=== PATIENT | female | born 1990 | race American Indian/Alaskan Native ===

== ENCOUNTER 2017-10-28 00:56 | Inpatient (IN) | payer MEDICAID ==
[2017-10-28] MEDS ORDERED: Carboprost Tromethamine 250 MCG/1 ML Amp IM PRN (01:56)
[2017-10-28] MEDS ORDERED: Tranexamic Acid 1,000 MG in Sodium Chloride 0.9% 100 ML IV PRN (01:56)
[2017-10-28] MEDS ORDERED: Lidocaine 1% 30 ML SDV INJECT PRN (01:56)
[2017-10-28] MEDS ORDERED: Misoprostol 400 MCG (4 X 100 MCG TAB) RECTAL PRN (01:56)
[2017-10-28] MEDS ORDERED: Acetaminophen 325 MG Tab PO PRN (01:56)
[2017-10-28] MEDS ORDERED: Methylergonovine 0.2 MG/1 ML Amp IM PRN (01:56)
[2017-10-28] MEDS ORDERED: Lactated Ringers 500 ML IV ONE (01:56)
[2017-10-28] MEDS ORDERED: Sodium Chloride 0.9% 10 ML Syringe FLUSH PRN (01:56)
[2017-10-28] MEDS ORDERED: Ondansetron 4 MG/2 ML SDV IV PRN (01:56)
[2017-10-28] MEDS ORDERED: Oxytocin/Normal Saline 30 UNIT/500 ML BAG IV SCH (02:00)
[2017-10-28] MEDS ORDERED: Penicillin G Potassium 5 MILLUNITS in Sodium Chloride 0.9% 100 ML IV ONE (02:00)
[2017-10-28] MEDS ORDERED: Lactated Ringers 1,000 ML IV SCH (02:00)
--- NOTE | 2017-10-28 02:07 | PCM.LDHP ---
L&D History of Present Illness - General Date of Service: 10/28/17 Admit Problem/Dx: Patient Status Order with Admit Dx/Problem 10/28/17 01:56 Patient Status [ADT] Routine Admission Diagnosis/Problem Admission Diagnosis/Problem care Source of Information: Patient History Limitations: Reports: No Limitations - History of Present Illness Introduction:: 27-year-old at unknown gestational age presented to L&D via ambulance with contractions that started sometime yesterday morning. They started increasing in strength around 1730 yesterday. She is currently feeling them every 2-3 minutes and does have to breathe through them. Baby has been active. She has had some blood tinged discharge but no active bleeding or leaking of fluid. Baby has been active. She thinks her LMP was in January, making this a suspected term . She states she had no care with this but has had care with her other pregnancies. She denies any history of HSV, gonorrhea, chlamydia or HCV. Patient's records were reviewed and her obstetric history is as follows: #1--02/09/08 Male 40w3d 8#9 Vaginal #2--04/27/09 Male 40w0d 7#2 Vaginal #3--03/24/10 Male 37w0d 6#5 Vaginal (Macrosomia #4--04/12/13 Male 40w0d 9#2 Vaginal (Induced for GDM) #5--05/31/15 Female 39w3d 8#13 Vaginal (Induced for GDM) - Related Data Allergies/Adverse Reactions: Allergies Allergy/AdvReac Type Severity Reaction Status Date / Time No Known Allergies Allergy Verified 05/31/15 00:22 Home Medications: Home Meds . 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: , Other (See Below) Other OB/BYN History: hx abnormal pap; Chlamydia 09/2011 (treated) Musculoskeletal History: Reports: None Neurological History: Reports: None Psychiatric History: Reports: None Endocrine/Metabolic History: Reports: Diabetes, Gestational Hematologic History: Reports: Anemia Immunologic History: Reports: None Oncologic (Cancer) History: Reports: None Dermatologic History: Reports: None - Infectious Disease History Infectious Disease History: Reports: Chicken Pox - Past Surgical History Female Surgical History: Reports: LEEP Social & Family History - Family History Family Medical History: Noncontributory Endocrine/Metabolic: Reports: Diabetes, type II (Maternal aunt; Paternal aunt) - Tobacco Use Smoking Status *Q: Never Smoker - Sexual History Sexual History: Reports: Sexually Active, Vaginal [place] - Living Situation & Occupation Living situation: Reports: with Significant Other H&P Review of Systems - Review of Systems: Review Of Systems: See Below General: Reports: No Symptoms HEENT: Reports: No Symptoms Pulmonary: Reports: No Symptoms Cardiovascular: Reports: No Symptoms Gastrointestinal: Reports: Abdominal Pain Genitourinary: Reports: No Symptoms Musculoskeletal: Reports: Back Pain Skin: Reports: No Symptoms Psychiatric: Reports: No Symptoms Neurological: Reports: No Symptoms Hematologic/Lymphatic: Reports: No Symptoms Immunologic: Reports: No Symptoms L&D Exam - Exam Exam: See Below - OB Specific Contraction Duration (sec): 60 Contraction Frequency (min): 3 Contraction Intensity: Moderate to Strong Movement: Active Heart Tones: Present Heart Tones per Min: 135 Heart Rate (FHR) Variability: Moderate (6-25 bmp) Presentation: Vertex - La Score La Score Cervix Position: Midposition La Score Consistency: Soft La Score Effacement: >80% La Score Dilation: > 5 cm La Score Infant's Station: -1 ,0 La Score Total: 11 - Exam General: Alert, Oriented HEENT: Conjunctiva Clear, Mucosa Moist & [place] Lungs: Clear to Auscultation, Normal Respiratory Effort Cardiovascular: Regular Rate, Regular Rhythm. No: Systolic Murmur, Diastolic Murmur Genitourinary: Normal external exam, Other (Gentle speculum exam revealed significan discharge and cervix; No bleeding noted) Extremities: No Pedal Edema Skin: Warm, Dry, Other (Significant scarring on arms and legs (patient reports this is from eczema)) - Problem List (1) Multiparity SNOMED Code(s): 18378678 ICD Code: Z64.1 - PROBLEMS RELATED TO MULTIPARITY Status: Acute Current Visit: Yes (2) No care in current in third trimester SNOMED Code(s): 206824691, 448340109 ICD Code: O09.33 - SUPRVSN OF PREG W INSUFFICIENT ANTENAT CARE, THIRD TRIMESTER Status: Acute Current Visit: Yes (3) Active labor SNOMED Code(s): 87520589 ICD Code: VZG2201 - Status: Acute Current Visit: Yes (4) History of gestational diabetes in prior , currently in third trimester SNOMED Code(s): 435810992 ICD Code: O09.293 - SUPRVSN OF PREG W POOR REPRODCTV OR OBSTET HX, THIRD TRI ; Z86.32 - PERSONAL HISTORY OF GESTATIONAL DIABETES Status: Acute Current Visit: Yes Problem List Initiated/Reviewed/Updated: Yes Orders Last 24hrs: Active Orders 24 hr Category Date Time Status Patient Status [ADT] Routine ADT 10/28/17 01:56 Ordered Blood Glucose Check, Bedside [RC] ONETIME Care 10/28/17 01:14 Active Communication Order [RC] ASDIRECTED Care 10/28/17 01:56 Ordered Heart Rate [RC] CONTINUOUS Care 10/28/17 01:14 Active Heart Tones [RC] PER UNIT ROUTINE Care 10/28/17 01:56 Ordered Non Stress Test [RC] PER UNIT ROUTINE Care 10/28/17 01:56 Ordered Notify Provider Vital Signs OB [RC] ASDIRECTED Care 10/28/17 01:56 Ordered Notify Provider [RC] PRN Care 10/28/17 01:56 Ordered OB Check [OM.PC] Click To Edit Care 10/28/17 01:14 Ordered POC Labs [RC] ASDIRECTED Care 10/28/17 01:14 Active Pump Management, Intrathecal [RC] ASDIRECTED Care 10/28/17 01:56 Ordered Up ad Malathi [RC] ASDIRECTED Care 10/28/17 01:56 Ordered Vital Signs [RC] PER UNIT ROUTINE Care 10/28/17 01:56 Ordered Consult to Case Management [CONS] Routine Cons 10/28/17 01:56 Ordered OB Ltd 1 or More Fetus [US] Routine Exams 10/28/17 01:14 Ordered CBC W/O DIFF,HEMOGRAM [HEME] Routine Lab 10/28/17 01:14 Ordered CHLAMYDIA AND GONORRHEA BY TMA Routine Lab 10/28/17 01:14 Ordered CULTURE GROUP B STREP [RM] Routine Lab 10/28/17 01:14 Ordered DRUG SCREEN URINE BIORAD [URCHEM] Routine Lab 10/28/17 01:00 Ordered HEP C VIRUS AB [REF] Urgent Lab 10/28/17 01:14 Ordered HIV 1,2 AB/AG COMBO SCREEN [REF] Routine Lab 10/28/17 01:14 Ordered MISC TEST Routine Lab 10/28/17 01:14 Ordered RPR [REF] Routine Lab 10/28/17 01:14 Ordered RUBELLA ANTIBODY, IGG [REF] Routine Lab 10/28/17 01:14 Ordered TYPE AND SCREEN [BBK] Routine Lab 10/28/17 01:14 Ordered UA W/MICROSCOPIC [URIN] Routine Lab 10/28/17 01:00 Ordered WET PREP [MYC] Routine Lab 10/28/17 01:14 Ordered Acetaminophen [Tylenol] Med 10/28/17 01:56 Ordered 650 mg PO Q4H PRN Carboprost Tromethamine [Hemabate DS] Med 10/28/17 01:56 Ordered 250 mcg IM ASDIRECTED PRN Lactated Ringers @ 125 MLS/HR(1000ml) Med 10/28/17 02:00 Ordered Lactated Ringers [Ringers, Lactated] 1,000 ml IV ASDIRECTED Lactated Ringers [Ringers, Lactated] 500 ml Med 10/28/17 01:56 Ordered IV .BOLUS Lidocaine 1% [Xylocaine-MPF 1%] Med 10/28/17 01:56 Ordered 10 ml INJECT ASDIRECTED PRN Methylergonovine [Methergine] Med 10/28/17 01:56 Ordered 0.2 mg IM ASDIRECTED PRN Ondansetron [Zofran] Med 10/28/17 01:56 Ordered 4 mg IV Q4H PRN Oxytocin 30 Units in NS @ 2 MUNITS/MIN(500ml) Med 10/28/17 02:00 Ordered Oxytocin/Normal Saline [Pitocin in NS 30 UNIT/500 ML] 30 unit in 500 ml IV TITRATE Penicillin G Potassium [Pfizerpen] 3 millunits Med 10/28/17 02:00 Ordered Sodium Chloride 0.9% [Normal Saline] 100 ml IV Q4HR Penicillin G Potassium [Pfizerpen] 5 millunits Med 10/28/17 01:56 Ordered Sodium Chloride 0.9% [Normal Saline] 100 ml IV ONETIME Sodium Chloride 0.9% [Saline Flush] Med 10/28/17 01:56 Ordered 10 ml FLUSH ASDIRECTED PRN Tranexamic Acid [Cyklokapron] 1,000 mg Med 10/28/17 01:56 Ordered Sodium Chloride 0.9% [Normal Saline] 100 ml IV ONETIME miSOPROStol [Cytotec] Med 10/28/17 01:56 Ordered 800 mcg RECTAL ASDIRECTED PRN Saline Lock Insert [OM.PC] Routine Oth 10/28/17 01:56 Ordered Resuscitation Status Routine Resus Stat 10/28/17 01:56 Ordered Medication Orders Acetaminophen (Tylenol) 650 mg PO Q4H PRN PRN Reason: Pain (Mild 1-3) and fever Carboprost Tromethamine (Hemabate Ds) 250 mcg IM ASDIRECTED PRN PRN Reason: HEMORRHAGE Lactated Ringer's (Ringers, Lactated) 500 mls @ 999 mls/hr IV .BOLUS ONE Stop: 10/28/17 02:26 Lactated Ringer's (Ringers, Lactated) 1,000 mls @ 125 mls/hr IV ASDIRECTED [place] Oxytocin/Sodium Chloride (Pitocin In Ns 30 Unit/500 Ml) 30 unit in 500 mls @ 2 mls/hr IV TITRATE [place]; Protocol Penicillin G Potassium 5 (millunits/ Sodium Chloride) 100 mls @ 200 mls/hr IV ONETIME ONE Stop: 10/28/17 02:25 Penicillin G Potassium 3 (millunits/ Sodium Chloride) 100 mls @ 200 mls/hr IV Q4HR [place] Tranexamic Acid 1,000 mg/ (Sodium Chloride) 110 mls @ 660 mls/hr IV ONETIME PRN PRN Reason: Bleeding Lidocaine HCl (Xylocaine-Mpf 1%) 10 ml INJECT ASDIRECTED PRN PRN Reason: Perineal Repair Methylergonovine Maleate (Methergine) 0.2 mg IM ASDIRECTED PRN PRN Reason: Hemorrhage Misoprostol (Cytotec) 800 mcg RECTAL ASDIRECTED PRN PRN Reason: Hemorrhage Ondansetron HCl (Zofran) 4 mg IV Q4H PRN PRN Reason: Nausea/Vomiting Sodium Chloride (Saline Flush) 10 ml FLUSH ASDIRECTED PRN PRN Reason: Keep Vein Open Assessment/Plan Comment:: 27-year-old at suspected term with no care. 1. Admit to L&D. Ultrasound is not available for assessment of gestational age ; however, patient is not a candidate for transfer given her advanced cervical dilation. Gentle speculum exam did not reveal any signs of placenta. Gentle cervical exam was performed and was normal for a patient with 8-9 cm dilation. Membranes are intact. 2. Obtain full IOB labs, including GBS, STD screening and UDS. 3. Will given PCN for GBS unknown status. 4. Expectant management. Anticipate . Milka Escalera MD
[2017-10-28] MEDS ORDERED: Zolpidem 5 MG Tab PO PRN (02:45)
[2017-10-28] MEDS ORDERED: Oxytocin 10 Units/1 ML SDV IM PRN (02:45)
[2017-10-28] MEDS ORDERED: Simethicone 80 MG Tab.Chew PO PRN (02:45)
[2017-10-28] MEDS ORDERED: Benzocaine/Menthol 20%-0.5% Spray 56 GM Canister TOP PRN (02:45)
[2017-10-28] MEDS ORDERED: Ketorolac 30 MG/ML SDV IVPUSH PRN (02:47)
--- NOTE | 2017-10-28 02:47 | PCM.DEL ---
L & D Note - General Info Date of Service: 10/29/17 - Delivery Note Labor: Spontaneous Delivery Outcome: Livebirth Delivery Method: Spontaneous Vaginal Delivery-Single Presentation: Vertex Nuchal Cord: None Anesthesia Type: None Amniotic Fluid Description: Clear Episiotomy Type: None Laceration: None Placenta: Intact, Spontaneous Cord: 3 Vessels Estimated Blood Loss: 250 [place]: Bulb Syringe, Stimulated, Warmed, Warmer Used Score 1 min: 8 Score 5 min: 9 Delivery Comments (Free Text/Narrative):: 27-year-old, now , at unknown gestational age presented to L&D via ambulance for contractions that started approximately 18 hours prior to arrival to the hospital and had been painful for about 6 hours prior to her arrival. She did not have any care. Because of this and lack of ultrasound availability, a gentle speculum exam was done. This revealed a significantly dilated cervix. A cervical exam was then performed and patient was found to be at 9 cm. Patient received a dose of PCN for her GBS unknown status but she was inadequately treated as she proceeded to complete dilation a short time later. Her membranes were ruptured. She delivered a viable female infant a short time later after pushing one time. Infant's Apgars were 8 and 9 at 1 and 5 minutes respectively. Placental delivered spontaneously a few minutes later. Umbilical cord was collected for drug screening. Perineum was noted to be intact, and bleeding was appropriately. - General Info Date of Service: 10/28/17 - Patient Data Vitals - Most Recent: Last Vital Signs Temp 37.1 C 10/28/17 02:18 Pulse 79 10/28/17 02:18 Resp 20 10/28/17 02:18 BP 127/77 10/28/17 02:18 Pulse Ox Lab Results Last 24 Hours: Laboratory Results - last 24 hr 10/28/17 10/28/17 10/28/17 Range/Units 01:00 01:00 02:00 WBC 11.7 H (5.0-10.0) 10^3/uL RBC 4.17 L (4.2-5.4) 10^6/uL Hgb 10.7 L (12.0-16.0) g/dL Hct 34.1 L (37.0-47.0) % MCV 81.8 D (80-100) fL MCH 25.7 L (27.0-34.0) pg MCHC 31.4 L (33.0-35.0) g/dL Plt Count 211 (150-450) 10^3/uL Urine Color Yellow (YELLOW) Urine Appearance Cloudy (CLEAR) Urine pH 7.5 (5.0-9.0) Ur Specific [place] 1.020 (1.005-1.030) Urine Protein Trace H (NEGATIVE) Urine Glucose (UA) Negative (NEGATIVE) Urine Ketones 40 H (NEGATIVE) Urine Occult Blood Negative (NEGATIVE) Urine Nitrite Negative (NEGATIVE) Urine Bilirubin Negative (NEGATIVE) Urine Urobilinogen 0.2 (0.2-1.0) mg/dL Ur Leukocyte Esterase Trace H (NEGATIVE) Urine RBC 5-10 H /HPF Urine WBC 10-20 H (0-5/HPF) /HPF Ur Epithelial Cells Moderate H /HPF Amorphous Sediment Few (0/HPF) /HPF Urine Bacteria Few (0-FEW/HPF) /HPF Urine Mucus Moderate H /LPF Urine Opiates Screen Negative (NEGATIVE) Ur Oxycodone Screen Negative (NEGATIVE) Urine Methadone Screen Negative (NEGATIVE) Ur Barbiturates Screen Negative (NEGATIVE) U Tricyclic Antidepress Negative (NEGATIVE) Ur Phencyclidine Scrn Negative (NEGATIVE) Ur Amphetamine Screen Negative (NEGATIVE) U Methamphetamines Scrn Negative (NEGATIVE) Urine MDMA Screen Negative (NEGATIVE) U Benzodiazepines Scrn Negative (NEGATIVE) Urine Cocaine Screen Negative (NEGATIVE) U Marijuana (THC) Screen Negative (NEGATIVE) Med Orders - Current: Current Medications Acetaminophen (Tylenol) 650 mg PO Q4H PRN PRN Reason: Pain (Mild 1-3) and fever Benzocaine/Menthol (Dermoplast Pain Relief [place]) 0 gm TOP Q4H PRN PRN Reason: Perineal comfort measures Carboprost Tromethamine (Hemabate Ds) 250 mcg IM ASDIRECTED PRN PRN Reason: HEMORRHAGE Docusate Sodium (Colace) 100 mg PO BID PRN PRN Reason: Constipation Oxytocin/Sodium Chloride (Pitocin In Ns 30 Unit/500 Ml) 30 unit in 500 mls @ 2 mls/hr IV TITRATE [place]; Protocol Tranexamic Acid 1,000 mg/ (Sodium Chloride) 110 mls @ 660 mls/hr IV ONETIME PRN PRN Reason: Bleeding Ibuprofen (Motrin) 800 mg PO Q8H PRN PRN Reason: Mild Pain or Fever Methylergonovine Maleate (Methergine) 0.2 mg IM ASDIRECTED PRN PRN Reason: Hemorrhage Misoprostol (Cytotec) 800 mcg RECTAL ASDIRECTED PRN PRN Reason: Hemorrhage Ondansetron HCl (Zofran) 4 mg IV Q4H PRN PRN Reason: Nausea/Vomiting Oxytocin (Pitocin) 10 unit IM ONETIME PRN PRN Reason: Bleeding Prenat Multivit/Fur Polisher/Iron/Folic Ac ( Plus Iron) 1 each PO DAILY [place] Simethicone (Simethicone) 80 mg PO Q4H PRN PRN Reason: Gas Sodium Chloride (Saline Flush) 10 ml FLUSH ASDIRECTED PRN PRN Reason: Keep Vein Open Zolpidem Tartrate (Ambien) 5 mg PO BEDTIME PRN PRN Reason: Insomnia Discontinued Medications Lactated Ringer's (Ringers, Lactated) 500 mls @ 999 mls/hr IV .BOLUS ONE Stop: 10/28/17 02:26 Lactated Ringer's (Ringers, Lactated) 1,000 mls @ 125 mls/hr IV ASDIRECTED [place] Penicillin G Potassium 5 (millunits/ Sodium Chloride) 100 mls @ 200 mls/hr IV ONETIME ONE Stop: 10/28/17 02:29 Penicillin G Potassium 3 (millunits/ Sodium Chloride) 100 mls @ 200 mls/hr IV Q4HR [place] Lidocaine HCl (Xylocaine-Mpf 1%) 10 ml INJECT ASDIRECTED PRN PRN Reason: Perineal Repair - Problem List & Annotations (1) Multiparity SNOMED Code(s): 09087472 Code(s): Z64.1 - PROBLEMS RELATED TO MULTIPARITY Status: Acute Current Visit: Yes (2) No care in current in third trimester SNOMED Code(s): 209021344, 619682884 Code(s): O09.33 - SUPRVSN OF PREG W INSUFFICIENT ANTENAT CARE, THIRD TRIMESTER Status: Acute Current Visit: Yes (3) Active labor SNOMED Code(s): 35604418 Code(s): PSG4650 - Status: Acute Current Visit: Yes (4) History of gestational diabetes in prior , currently in third trimester SNOMED Code(s): 530873360 Code(s): O09.293 - SUPRVSN OF PREG W POOR REPRODCTV OR OBSTET HX, THIRD TRI; Z86.32 - PERSONAL HISTORY OF GESTATIONAL DIABETES Status: Acute Current Visit: Yes - Problem List Review Problem List Initiated/Reviewed/Updated: Yes - My Orders Last 24 Hours: My Active Orders 10/28/17 01:00 CHLAMYDIA AND GONORRHEA BY TMA Routine CULTURE GROUP B STREP [RM] Routine MISC TEST Routine 10/28/17 01:14 OB Check [OM.PC] Click To Edit OB Ltd 1 or More Fetus [US] Routine 10/28/17 01:56 Patient Status [ADT] Routine Non Stress Test [RC] PER UNIT ROUTINE Notify Provider Vital Signs OB [RC] ASDIRECTED Up ad Malathi [RC] ASDIRECTED Consult to Case Management [CONS] Routine Acetaminophen [Tylenol] 650 mg PO Q4H PRN Carboprost Tromethamine [Hemabate DS] 250 mcg IM ASDIRECTED PRN Methylergonovine [Methergine] 0.2 mg IM ASDIRECTED PRN Ondansetron [Zofran] 4 mg IV Q4H PRN Sodium Chloride 0.9% [Saline Flush] 10 ml FLUSH ASDIRECTED PRN Tranexamic Acid [Cyklokapron] 1,000 mg Sodium Chloride 0.9% [Normal Saline] 100 ml IV ONETIME miSOPROStol [Cytotec] 800 mcg RECTAL ASDIRECTED PRN Saline Lock Insert [OM.PC] Routine Resuscitation Status Routine 10/28/17 02:00 HEP C VIRUS AB [REF] Urgent HIV 1,2 AB/AG COMBO SCREEN [REF] Routine RPR [REF] Routine RUBELLA ANTIBODY, IGG [REF] Routine TYPE AND SCREEN [BBK] Routine Oxytocin/Normal Saline [Pitocin in NS 30 UNIT/500 ML] 30 unit in 500 ml IV TITRATE 10/28/17 02:19 WET PREP [MYC] Routine 10/28/17 02:45 Vital Signs [RC] PFP Benzocaine/Menthol [Dermoplast Pain Relief [place]] See Dose Instructions TOP Q4H PRN Docusate Sodium [Colace] 100 mg PO BID PRN Ibuprofen [Motrin] 800 mg PO Q8H PRN Oxytocin [Pitocin] 10 unit IM ONETIME PRN Simethicone 80 mg PO Q4H PRN Zolpidem [Ambien] 5 mg PO BEDTIME PRN Assess Lochia [WOMSER] Per Unit Routine Assess Uterine Involution [WOMSER] Per Unit Routine Breast Pump [WOMSER] Per Unit Routine Ice Therapy [OM.PC] Per Unit Routine Perineal Care [OM.PC] Per Unit Routine Saline Lock Insert [OM.PC] Urgent Sitz Bath [OM.PC] Per Unit Routine 10/28/17 02:47 Ketorolac [Toradol] 30 mg IVPUSH Q6H PRN 10/28/17 09:00 Vit with Ca/FA/Iron [ Plus Iron] 1 each PO DAILY 10/28/17 Breakfast Regular Diet [DIET] - Assessment Assessment:: 27-year-old, now , status post at unknown gestational age. - Plan Plan:: 1. Initiate routine orders 2. Plans to bottle feed 3. Follow-up in IOB labs 4. Anticipate discharge on 10/30/17 Milka Escalera MD
[2017-10-28] MEDS ORDERED: Penicillin G Potassium 3 MILLUNITS in Sodium Chloride 0.9% 100 ML IV SCH (06:00)
[2017-10-28] MEDS: Ibuprofen 800 MG Tab PO PRN ×2 (09:23→19:54)
[2017-10-28] MEDS: Prenatal Multivitamin with Calcium/Folic Acid/Iron Tab PO SCH (09:24)
[2017-10-28] MEDS: Docusate Sodium 100 MG Cap PO PRN ×2 (09:26→19:54)
[2017-10-29] MEDS: Docusate Sodium 100 MG Cap PO PRN ×2 (08:34→20:16)
[2017-10-29] MEDS: Prenatal Multivitamin with Calcium/Folic Acid/Iron Tab PO SCH (08:34)
[2017-10-29] MEDS: Ibuprofen 800 MG Tab PO PRN ×2 (08:34→20:16)
--- NOTE | 2017-10-29 16:41 | PCM.PNPP ---
- General Info Date of Service: 10/29/17 Subjective Update: 27-year-old, now , PPD#1 status post . Patient is doing well. She has some mild back pain but no other pain. Bleeding is decreasing. She is voiding without difficulty. Has not had a bowel movement yet. No fever or chills. Ambulating without difficulty and tolerating a general diet. Functional Status: Reports: Pain Controlled, Tolerating Diet, Ambulating, Urinating. Denies: New Symptoms - Review of Systems General: Reports: No Symptoms HEENT: Reports: No Symptoms Pulmonary: Reports: No Symptoms Cardiovascular: Reports: No Symptoms Gastrointestinal: Reports: No Symptoms Genitourinary: Reports: No Symptoms Musculoskeletal: Reports: Back Pain - Patient Data Vital Signs - Most Recent: Last Vital Signs Temp 36.8 C 10/29/17 08:00 Pulse 141 H 10/29/17 08:00 Resp 18 10/29/17 08:00 BP 123/84 10/29/17 08:00 Pulse Ox 98 10/29/17 08:00 Weight - Most Recent: 111.13 kg Lab Results - Last 24 Hours: Laboratory Results - last 24 hr 10/28/17 10/28/17 10/28/17 Range/Units 02:00 02:00 02:00 RPR Non-reac (Non-Reac) HIV (1&2) Ag & Ab Refer See scanned report Rubella Immune Status Immune Rubella IgG Antibody Positive Med Orders - Current: Current Medications Acetaminophen (Tylenol) 650 mg PO Q4H PRN PRN Reason: Pain (Mild 1-3) and fever Benzocaine/Menthol (Dermoplast Pain Relief [place]) 0 gm TOP Q4H PRN PRN Reason: Perineal comfort measures Carboprost Tromethamine (Hemabate Ds) 250 mcg IM ASDIRECTED PRN PRN Reason: HEMORRHAGE Docusate Sodium (Colace) 100 mg PO BID PRN PRN Reason: Constipation Last Admin: 10/29/17 08:34 Dose: 100 mg Oxytocin/Sodium Chloride (Pitocin In Ns 30 Unit/500 Ml) 30 unit in 500 mls @ 2 mls/hr IV TITRATE [place]; Protocol Last Titration: 10/28/17 05:30 Dose: 0 mls/hr Tranexamic Acid 1,000 mg/ (Sodium Chloride) 110 mls @ 660 mls/hr IV ONETIME PRN PRN Reason: Bleeding Ibuprofen (Motrin) 800 mg PO Q8H PRN PRN Reason: Mild Pain or Fever Last Admin: 10/29/17 08:34 Dose: 800 mg Ketorolac Tromethamine (Toradol) 30 mg IVPUSH Q6H PRN PRN Reason: Pain Stop: 11/02/17 02:47 Last Admin: 10/28/17 03:14 Dose: 30 mg Methylergonovine Maleate (Methergine) 0.2 mg IM ASDIRECTED PRN PRN Reason: Hemorrhage Misoprostol (Cytotec) 800 mcg RECTAL ASDIRECTED PRN PRN Reason: Hemorrhage Ondansetron HCl (Zofran) 4 mg IV Q4H PRN PRN Reason: Nausea/Vomiting Oxytocin (Pitocin) 10 unit IM ONETIME PRN PRN Reason: Bleeding Prenat Multivit/Office Automation Clerk/Iron/Folic Ac ( Plus Iron) 1 each PO DAILY [place] Last Admin: 10/29/17 08:34 Dose: 1 each Simethicone (Simethicone) 80 mg PO Q4H PRN PRN Reason: Gas Sodium Chloride (Saline Flush) 10 ml FLUSH ASDIRECTED PRN PRN Reason: Keep Vein Open Zolpidem Tartrate (Ambien) 5 mg PO BEDTIME PRN PRN Reason: Insomnia Discontinued Medications Lactated Ringer's (Ringers, Lactated) 500 mls @ 999 mls/hr IV .BOLUS ONE Stop: 10/28/17 02:26 Last Admin: 10/28/17 03:54 Dose: Not Given Lactated Ringer's (Ringers, Lactated) 1,000 mls @ 125 mls/hr IV ASDIRECTED [facility] Last Admin: 10/28/17 01:23 Dose: 125 mls/hr Penicillin G Potassium 5 (millunits/ Sodium Chloride) 100 mls @ 200 mls/hr IV ONETIME ONE Stop: 10/28/17 02:29 Last Admin: 10/28/17 01:43 Dose: 200 mls/hr Penicillin G Potassium 3 (millunits/ Sodium Chloride) 100 mls @ 200 mls/hr IV Q4HR [facility] Lidocaine HCl (Xylocaine-Mpf 1%) 10 ml INJECT ASDIRECTED PRN PRN Reason: Perineal Repair - Infant Interaction Disposition, : in Room with Family Infant Interaction: Holding Infant Infant Feeding: Bottle Fed Support Person: Sister - Recovery Exam Fundal Tone: Firm Fundal Level: 2 Fingerbreadths Below Umbilicus Fundal Placement: Midline Lochia Amount: Small Lochia Color: Brownish Perineum Description: Intact, Minimal Bruising/Swelling Episiotomy/Laceration: None Bladder Status: Voiding - Exam General: Alert, Oriented Lungs: Clear to Auscultation, Normal Respiratory Effort Cardiovascular: Regular Rate, Regular Rhythm, No Murmurs GI/Abdominal Exam: Soft, Non-Tender Skin: Warm, Dry, Intact - Problem List & Annotations (1) Multiparity SNOMED Code(s): 30289739 Code(s): Z64.1 - PROBLEMS RELATED TO MULTIPARITY Status: Acute Current Visit: Yes (2) No care in current in third trimester SNOMED Code(s): 695884743, 674995434 Code(s): O09.33 - SUPRVSN OF PREG W INSUFFICIENT ANTENAT CARE, THIRD TRIMESTER Status: Acute Current Visit: Yes (3) Active labor SNOMED Code(s): 74842089 Code(s): LOX1135 - Status: Acute Current Visit: Yes (4) History of gestational diabetes in prior , currently in third trimester SNOMED Code(s): 191907186 Code(s): O09.293 - SUPRVSN OF PREG W POOR REPRODCTV OR OBSTET HX, THIRD TRI; Z86.32 - PERSONAL HISTORY OF GESTATIONAL DIABETES Status: Acute Current Visit: Yes (5) (normal spontaneous vaginal delivery) SNOMED Code(s): 03022547 Code(s): O80 - ENCOUNTER FOR FULL-TERM UNCOMPLICATED DELIVERY Status: Acute Current Visit: Yes - Problem List Review Problem List Initiated/Reviewed/Updated: Yes - Assessment Assessment:: 27-year-old, now , PPD#1 status post at unknown gestational age. - Plan Plan:: 1. Continue routine orders 2. Bottle feeding 3. Anticipate discharge on 10/30/17 Milka Escalera MD
[2017-10-30 09:11] VITALS: BP 125/71
[2017-10-30] MEDS ORDERED: Diphtheria,Pertussis(Acell),Tetanus Vaccine 0.5 ML SDV IM ONE (09:24)
[2017-10-30] MEDS ORDERED: Measles, Mumps & Rubella Vaccine 0.5 ML SDV SUBCUT ONE (09:25)
[2017-10-30] MEDS: Prenatal Multivitamin with Calcium/Folic Acid/Iron Tab PO SCH (09:38)
[2017-10-30] MEDS: Docusate Sodium 100 MG Cap PO PRN (09:38)
--- NOTE | 2017-10-30 09:42 | PCM.DCSUM1 ---
Discharge Summary - Hospital Course Free Text/Narrative:: 27-year-old, now , status post at unknown gestational age. - Discharge Data Discharge Date: 10/30/17 Discharge Disposition: Home, Self-Care 01 Condition: Good - Discharge Diagnosis/Problem(s) (1) Multiparity SNOMED Code(s): 59559073 ICD Code: Z64.1 - PROBLEMS RELATED TO MULTIPARITY Status: Acute (2) No care in current in third trimester SNOMED Code(s): 817187767, 731820751 ICD Code: O09.33 - SUPRVSN OF PREG W INSUFFICIENT ANTENAT CARE, THIRD TRIMESTER Status: Acute (3) Active labor SNOMED Code(s): 56597601 ICD Code: DQU7513 - Status: Acute (4) History of gestational diabetes in prior , currently in third trimester SNOMED Code(s): 102471349 ICD Code: O09.293 - SUPRVSN OF PREG W POOR REPRODCTV OR OBSTET HX, THIRD TRI ; Z86.32 - PERSONAL HISTORY OF GESTATIONAL DIABETES Status: Acute (5) (normal spontaneous vaginal delivery) SNOMED Code(s): 33545405 ICD Code: O80 - ENCOUNTER FOR FULL-TERM UNCOMPLICATED DELIVERY Status: Acute - Patient Summary/Data Operative Procedure(s) Performed: None Complications: None Consults: Consultations 10/28/17 01:56 Consult to Case Management [CONS] Routine Labs Pending at D/C: GBS Recommended Follow-up Testing/Procedures: None Planned Operative Procedure(s) after DC: None Hospital Course: Unremarkable. Please see subjective section. - Patient Instructions Diet: Usual Diet as Tolerated Activity: As Tolerated, No Lifting Over 20 Pounds Driving: May Drive Today Showering/Bathing: May Shower Notify Provider of: Fever, Increased Pain, Drainage - Discharge Plan *PRESCRIPTION DRUG MONITORING PROGRAM REVIEWED*: Not Applicable *COPY OF PRESCRIPTION DRUG MONITORING REPORT IN PATIENT JANELLE: Not Applicable Home Medications: Home Meds Acetaminophen [Tylenol] 650 mg PO Q4H PRN tablet 10/30/17 [Rx] Docusate Sodium [Colace] 100 mg PO BID PRN cap 10/30/17 [Rx] Ibuprofen [Motrin] 800 mg PO Q8H PRN tablet 10/30/17 [Rx] Vit with Ca/FA/Iron [ Plus Iron] 1 each PO DAILY tablet [Rx] Patient Handouts: Baby Blues, Care After Vaginal Delivery Referrals: Milka Escalera MD [Physician] - (6-8 weeks) - Discharge Summary/Plan Comment DC Time >30 min.: No Discharge Summary/Plan Comment: Discharge home today. Follow-up in 6-8 weeks for routine visit. Reasons to return for evaluation prior to this visit were reviewed with the patient, and she voiced her understanding. Milka Escalera MD - General Info Date of Service: 10/30/17 Subjective Update: 27-year-old, now , PPD#2 status post . Patient is doing well. Back pain has remained stable. Patient believes it is from the hospital bed. Bleeding is decreasing. She is voiding without difficulty. Patient did have a bowel movement today without difficulty. No fever or chills. Ambulating without difficulty and tolerating a general diet. Functional Status: Reports: Pain Controlled, Tolerating Diet, Ambulating, Urinating - Review of Systems General: Reports: No Symptoms HEENT: Reports: No Symptoms Pulmonary: Reports: No Symptoms Cardiovascular: Reports: No Symptoms Gastrointestinal: Reports: No Symptoms Genitourinary: Reports: No Symptoms Musculoskeletal: Reports: Back Pain Skin: Reports: No Symptoms Neurological: Reports: No Symptoms - Patient Data Vitals - Most Recent: Last Vital Signs Temp 36.2 C 10/30/17 08:00 Pulse 81 10/30/17 08:00 Resp 18 10/30/17 08:00 BP 125/71 10/30/17 08:00 Pulse Ox 99 10/30/17 08:00 Weight - Most Recent: 111.13 kg Lab Results - Last 24 hrs: Laboratory Results - last 24 hr 10/28/17 10/28/17 10/28/17 Range/Units 01:00 02:00 02:00 RPR Non-reac (Non-Reac) Chlamydia/GC Source Genital C.trachomatis RNA (TMA) Negative (Negative) Hepatitis C Antibody (0.0-0.9) s/co ratio HIV (1&2) Ag & Ab Refer See scanned report N.gonorrhoeae RNA (TMA) Negative (Negative) 10/28/17 Range/Units 02:00 RPR (Non-Reac) Chlamydia/GC Source C.trachomatis RNA (TMA) (Negative) Hepatitis C Antibody <0.1 (0.0-0.9) s/co ratio HIV (1&2) Ag & Ab Refer N.gonorrhoeae RNA (TMA) (Negative) Med Orders - Current: Current Medications Acetaminophen (Tylenol) 650 mg PO Q4H PRN PRN Reason: Pain (Mild 1-3) and fever Benzocaine/Menthol (Dermoplast Pain Relief [place]) 0 gm TOP Q4H PRN PRN Reason: Perineal comfort measures Carboprost Tromethamine (Hemabate Ds) 250 mcg IM ASDIRECTED PRN PRN Reason: HEMORRHAGE Docusate Sodium (Colace) 100 mg PO BID PRN PRN Reason: Constipation Last Admin: 10/29/17 20:16 Dose: 100 mg Oxytocin/Sodium Chloride (Pitocin In Ns 30 Unit/500 Ml) 30 unit in 500 mls @ 2 mls/hr IV TITRATE [place]; Protocol Last Titration: 10/28/17 05:30 Dose: 0 mls/hr Tranexamic Acid 1,000 mg/ (Sodium Chloride) 110 mls @ 660 mls/hr IV ONETIME PRN PRN Reason: Bleeding Ibuprofen (Motrin) 800 mg PO Q8H PRN PRN Reason: Mild Pain or Fever Last Admin: 10/29/17 20:16 Dose: 800 mg Ketorolac Tromethamine (Toradol) 30 mg IVPUSH Q6H PRN PRN Reason: Pain Stop: 11/02/17 02:47 Last Admin: 10/28/17 03:14 Dose: 30 mg Methylergonovine Maleate (Methergine) 0.2 mg IM ASDIRECTED PRN PRN Reason: Hemorrhage Misoprostol (Cytotec) 800 mcg RECTAL ASDIRECTED PRN PRN Reason: Hemorrhage Ondansetron HCl (Zofran) 4 mg IV Q4H PRN PRN Reason: Nausea/Vomiting Oxytocin (Pitocin) 10 unit IM ONETIME PRN PRN Reason: Bleeding Prenat Multivit/[place]/Iron/Folic Ac ( Plus Iron) 1 each PO DAILY [place] Last Admin: 10/29/17 08:34 Dose: 1 each Simethicone (Simethicone) 80 mg PO Q4H PRN PRN Reason: Gas Sodium Chloride (Saline Flush) 10 ml FLUSH ASDIRECTED PRN PRN Reason: Keep Vein Open Zolpidem Tartrate (Ambien) 5 mg PO BEDTIME PRN PRN Reason: Insomnia Discontinued Medications Diphtheria/Tetanus/Acell Pertussis (Adacel) 0.5 ml IM .ONCE ONE Stop: 10/30/17 09:25 Lactated Ringer's (Ringers, Lactated) 500 mls @ 999 mls/hr IV .BOLUS ONE Stop: 10/28/17 02:26 Last Admin: 10/28/17 03:54 Dose: Not Given Lactated Ringer's (Ringers, Lactated) 1,000 mls @ 125 mls/hr IV ASDIRECTED [place] Last Admin: 10/28/17 01:23 Dose: 125 mls/hr Penicillin G Potassium 5 (millunits/ Sodium Chloride) 100 mls @ 200 mls/hr IV ONETIME ONE Stop: 10/28/17 02:29 Last Admin: 10/28/17 01:43 Dose: 200 mls/hr Penicillin G Potassium 3 (millunits/ Sodium Chloride) 100 mls @ 200 mls/hr IV Q4HR [facility] Lidocaine HCl (Xylocaine-Mpf 1%) 10 ml INJECT ASDIRECTED PRN PRN Reason: Perineal Repair Measles/Mumps/Rubella Vaccine Live (M-M-R Ii Vaccine) 0.5 ml SUBCUT .ONCE ONE Stop: 10/30/17 09:26 - Exam General: Reports: Alert, Oriented Lungs: Reports: Clear to Auscultation, Normal Respiratory Effort Cardiovascular: Reports: Regular Rate, Regular Rhythm, No Murmurs GI/Abdominal Exam: Soft, Non-Tender Back Exam: Reports: Normal Inspection, Paraspinal Tenderness. Denies: Vertebral Tenderness Extremities: No Pedal Edema Skin: Reports: Warm, Dry, Intact
== END 2017-10-30 11:14 | disposition home or self-care (01) | DRG 775 ==
LOC: DL.OBCHECK 00:56 → DL.OB 01:40 → OBSVTOIN 02:34
PROVIDERS: ADMIT Family Medicine; ATTEND Family Medicine
PROC: 10E0XZZ Delivery of Products of Conception, External Approach (ICD-10-PCS; principal; 2017-10-29)
DX: O80 Encounter for full-term uncomplicated delivery (principal); Z3A.00 Weeks of gestation of pregnancy not specified; Z37.0 Single live birth; Z86.32 Personal history of gestational diabetes
CPT/HCPCS: 36415; 59409; 80305-QW; 80307; 81001; 82962; 85027; 86592; 86762; 86803; 86850; 86900; 86901; 87081; 87389; 87491; 87591; 90471; 90707; 90715; A9270-GY; J1885; J2540; J2590; J7050; J7120

== ENCOUNTER 2017-12-13 19:46 | Emergency (ER) | payer MEDICAID ==
[2017-12-13 19:54] VITALS: BP 137/74
[2017-12-13] MEDS ORDERED: Oseltamivir 75 MG Cap PO ONE (20:17)
--- NOTE | 2017-12-13 20:28 | EDM.PDOC ---
ED HPI GENERAL MEDICAL PROBLEM - General Chief Complaint: ENT Problem Stated Complaint: SORE THROAT,COUGH [id number] Time Seen by Provider: 12/13/17 20:10 Source of Information: Reports: Patient History Limitations: Reports: No Limitations - History of Present Illness INITIAL COMMENTS - FREE TEXT/NARRATIVE: sore throat and cough since yesterday, body aches today, has been taking ibuprofen today for discomfort. No nausea or vomiting. Tolerating liquids. - Related Data Allergies Allergy/AdvReac Type Severity Reaction Status Date / Time No Known Allergies Allergy Verified 12/13/17 19:54 Home Meds: Home Meds . 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: hx abnormal pap; Chlamydia 09/2011 (treated) Musculoskeletal History: Reports: None Neurological History: Reports: None Psychiatric History: Reports: None Endocrine/Metabolic History: Reports: Diabetes, Gestational Other Endocrine/Metabolic History: no care with present Hematologic History: Reports: Anemia Immunologic History: Reports: None Oncologic (Cancer) History: Reports: None Dermatologic History: Reports: None Other Dermatologic History: scabs on arms and legs; pt states she has eczema and uses benadryl/cortizone cream - Infectious Disease History Infectious Disease History: Reports: Chicken Pox - Past Surgical History Head Surgeries/Procedures: Reports: None Female Surgical History: Reports: LEEP Social & Family History - Family History Family Medical History: Noncontributory Endocrine/Metabolic: Reports: Diabetes, type II - Tobacco Use Smoking Status *Q: Never Smoker Second Hand Smoke Exposure: Yes - Caffeine Use Caffeine Use: Reports: Soda Other Caffeine Use: OCC - Recreational Drug Use Recreational Drug Use: No - Sexual History Sexual History: Reports: Sexually Active, Vaginal [place] - Living Situation & Occupation Living situation: Reports: with Significant Other ED ROS ENT - Review of Systems Review Of Systems: See Below Constitutional: Reports: Fever, Chills HEENT: Reports: Throat Pain Respiratory: Reports: Cough Cardiovascular: Reports: No Symptoms GI/Abdominal: Reports: No Symptoms Musculoskeletal: Reports: Other (generalized body aches) Skin: Reports: No Symptoms Neurological: Reports: No Symptoms ED EXAM, ENT - Physical Exam Exam: See Below Exam Limited By: No Limitations General Appearance: Alert, Mild Distress Eye Exam: Bilateral Eye: EOMI Ears: Normal External Exam, Hearing Grossly Normal, Normal TMs Nose: Normal Inspection Mouth/Throat: Muffled Voice, Pharyngeal Erythema Head: Atraumatic, Normocephalic Respiratory/Chest: No Respiratory Distress, Lungs Clear, Normal Breath Sounds Cardiovascular: Normal Peripheral Pulses, Regular Rate, Rhythm Back: Full Range of Motion Extremities: Normal Inspection, Normal Range of Motion Neurological: Alert, Oriented, Normal Cognition Psychiatric: Normal Affect Skin: Warm, Dry, Intact, Normal Color Course - Vital Signs Last Recorded V/S: Last Vital Signs Temp 97.5 F 12/13/17 19:52 Pulse 99 12/13/17 19:52 Resp 18 12/13/17 19:52 BP 137/74 12/13/17 19:52 Pulse Ox 99 12/13/17 19:52 - Orders/Labs/Meds Orders: Active Orders 24 hr Category Date Time Status CULTURE STREP A CONFIRMATION [RM] Stat Lab 12/13/17 20:00 Results STREP SCRN A RAPID W CULT CONF [] Stat Lab 12/13/17 20:00 Results Meds: Medications Discontinued Medications Generic Name Dose Route Start Last Admin Trade Name Davonte PRN Reason Stop Dose Admin Oseltamivir Phosphate 75 mg 12/13/17 20:17 12/13/17 20:22 Tamiflu PO 12/13/17 20:18 75 mg ONETIME ONE Administration Departure - Departure Time of Disposition: 20:26 Disposition: Home, Self-Care 01 Condition: Good Clinical Impression: Influenza A - Discharge Information *PRESCRIPTION DRUG MONITORING PROGRAM REVIEWED*: Not Applicable Instructions: Influenza, Adult, [id number] Forms: ED Department Discharge Additional Instructions: increase fluids humidifier good handwashing alternate tylenol and ibuprofen every 4 hours as needed for discomfort tamiflu 75mg one twice daily for 5 days avoid contact with very young, elderly or others with poor immune systems - My Orders Last 24 Hours: My Active Orders 12/13/17 20:00 CULTURE STREP A CONFIRMATION [RM] Stat STREP SCRN A RAPID W CULT CONF [] Stat - Assessment/Plan Last 24 Hours: My Active Orders 12/13/17 20:00 CULTURE STREP A CONFIRMATION [RM] Stat STREP SCRN A RAPID W CULT CONF [RM] Stat
== END 2017-12-13 20:32 | disposition home or self-care (01) ==
LOC: DL.ED 19:46
DX: J10.1 Influenza due to other identified influenza virus with other respiratory manifestations (principal)
CPT/HCPCS: 87081; 87430; 87804; 99283; A9270

== ENCOUNTER 2025-02-11 12:32 | Emergency (ER) | payer MEDICAID, SELFPAY ==
[~2025-02-11 12:32] MED LIST: Sodium Chloride 0.9% 10 ML Syringe FLUSH PRN
[2025-02-11 13:04] LABS: BASOPHILS PERCENT AUTO 0.2 % (0.0-1.0); EOSINOPHILS PERCENT AUTO 0.3 % (1.0-3.0); LYMPHOCYTES PERCENT AUTO 9.0 % (20.5-50.1); MONOCYTES PERCENT AUTO 5.7 % (2-8); NEUTROPHILS PERCENT AUTO 84.8 % (42.2-75.2); PLATELET COUNT,PLT 65 10^3/uL (150-450); RED BLOOD CELL COUNT 4.73 10^6/uL (4.2-5.4); WHITE BLOOD CELL COUNT,WBC 6.6 10^3/uL (5.0-10.0)
[2025-02-11] MEDS: MVI, Adult with Vitamin K 10 ML, Folic Acid 1 MG, Thiamine 100 MG in Lactated Ringers 1... IV ONE (13:14)
[2025-02-11 13:19] LABS: INR 1.1 (0.9-1.2)
[2025-02-11 13:35] LABS: A/G RATIO 0.7; ALANINE AMINOTRANSFERASE,ALT 115 U/L (14-59); ASPARTATE AMNIOTRANSFERASE,AST 152 U/L (15-37); BILIRUBIN TOTAL 0.4 mg/dL (0.2-1.0); BLOOD UREA NITROGEN,BUN 12 mg/dL (7-18); CARBON DIOXIDE,CO2 26 mmol/L (21-32); CHLORIDE,CL 101 mmol/L (98-107); CREATININE 0.82 mg/dL (0.55-1.02); GLUCOSE RANDOM 130 mg/dL (70-99); PHOSPHORUS 1.7 mg/dL (2.6-4.7); POTASSIUM,K 3.4 mmol/L (3.5-5.1); PROTEIN TOTAL,TP 8.5 g/dL (6.4-8.2); SODIUM,NA 138 mmol/L (136-145)
[2025-02-11 13:36] LABS: ESTIMATED GFR 96 mL/min (>=60); ETHANOL BLOOD MEDICAL < 3 mg/dL (0)
[2025-02-11] MEDS: Take Home: Potassium Chloride 10 MEQ Tab, 10 Tab Pack PO ONE (14:09)
[2025-02-11 14:37] VITALS: BP 143/102; PULSE 104
== END 2025-02-11 14:09 | disposition home or self-care (01) ==
LOC: DL.ED 12:32
DX: D64.9 Anemia, unspecified (principal); E87.6 Hypokalemia; E83.42 Hypomagnesemia
CPT/HCPCS: 36415; 80053; 80307; 83735; 84100; 85025; 85610; 96365; 99284; A9270; J1808; J3411; J7120; J3490